=== PATIENT | male | born 1950 | race Caucasian/White ===

== ENCOUNTER 2018-09-22 08:14 | Inpatient (IN) | payer BC, MEDICARE ==
--- NOTE | 2018-09-03 09:28 | ANES ---
Anesthesia Pre Procedure Eval HOME MEDICATIONS Aspirin [Aspirin EC] 81 mg PO DAILY 11/29/17 [Last Taken Unknown] Glucosamine HCl 1,000 mg PO DAILY 11/29/17 [Last Taken Unknown] Ubidecarenone [Co Q-10] 10 mg PO DAILY 11/29/17 [Last Taken Unknown] metformin 1,000 mg tablet 1,000 mg PO BID #180 tab 04/29/18 [Last Taken Unknown] glimepiride 4 mg tablet 8 mg PO DAILY #180 tab 07/25/18 [Last Taken Unknown] atorvastatin 80 mg tablet 80 mg PO DAILY #90 tab 08/06/18 [Last Taken Unknown] sitagliptin 100 mg tablet 100 mg PO DAILY #90 tab 08/29/18 [Last Taken Unknown] Allergies/Adverse Reactions: Allergies Allergy/AdvReac Type Severity Reaction Status Date / Time No Known Allergies Allergy Verified 09/03/18 08:23 - Planned Procedure Planned Procedure: Arthroplasty Total Knee Left Medication List Reviewed:: Yes Allergies Verified: Yes Medical History (Last Reviewed 09/03/18 @ 09:21 by Art Sidhu CRNA) Sensorineural hearing loss (SNHL) of both ears (Chronic) Obesity (Chronic) Hypertension (Chronic) Hyperlipidemia (Chronic) Diabetes mellitus (Chronic) Bilateral tinnitus (Chronic) Surgical History (Last Reviewed 09/03/18 @ 09:21 by Art Sidhu CRNA) History of arthroscopic knee surgery Onset Date: ~11/01/04 right -Dr. Liz History of colonoscopy Onset Date: ~12/24/17 06/04/2008 Dr. Miller-WNL 12/24/2017 Dr. Randhawa-DARNELL Family History (Last Reviewed 09/03/18 @ 09:21 by Art Sidhu CRNA) Brother Gout Alive and well Cancer Father , age 86 Gout CHF (congestive heart failure) Mother Arthritis A-fib Mother No problems noted. Brother Leukemia Son Cancer, Onset Age: 46 Colon CA - Family Anesthesia History Family History:: no untoward family reactions to anesthesia, no familial bleeding tendencies, no family history of clotting disorders, no family history of premature - Airway/Neck/Teeth Within Normal Limits:: Yes - lower teeth implants Teeth Condition: Intact Neck Exam: non-tender Mallampatti Score: 4 Thyromental (T-M) distance: > 6 cm Mandibulo Hyoid distance: > 3 cm - Respiratory Respiratory: chest non-tender, lungs clear, normal breath sounds Smoking Status: Former smoker Discussed smoking cessation including day of surgery: No Sleep Apnea currently treated: No Sleep Apnea by current assessment: Yes - Some symptoms but denies HILDA Discussed Risks/Treatment of HILDA: Yes - Cardiovascular Patient History - Cardiac/Respiratory: Hypertension, Hyperlipidemia Tolerates Activity: Fair Heart Sounds: S1 & S2, Regular - Anesthesia Assessment and Plan ASA Class: PS, III - Morbid obesity, HTN, diabetes
[~2018-09-22 08:14] MED LIST: MORPHINE SULFATE 15 MG TABLET.SA PO PRN; ROPIVACAINE HCL/PF 100 MG, EPINEPHrine 0.2 MG, KETOROLAC TROMETHAMINE 30 MG in NORMAL S... IJ PRN; TRANEXAMIC ACID 1,000 MG in NORMAL SALINE 100 ML IV PRN; ceFAZolin SODIUM 1 GM VIAL IV PRN
[2018-09-22] MEDS: RINGER'S SOLUTION,LACTATED 1,000 ML IV PRN ×3 (09:17→11:45)
[2018-09-22] MEDS ORDERED: MORPHINE SULFATE 2 MG/ML DISP.SYRIN IV PRN (11:53)
[2018-09-22] MEDS ORDERED: ZOLPIDEM TARTRATE 5 MG TABLET PO PRN (11:53)
[2018-09-22] MEDS ORDERED: RINGER'S SOLUTION,LACTATED 1,000 ML IV PRN (11:53)
[2018-09-22] MEDS ORDERED: ONDANSETRON HCL/PF 2 MG/ML VIAL IV PRN (11:53)
[2018-09-22] MEDS ORDERED: ACETAMINOPHEN 500 MG TABLET PO PRN (11:53)
[2018-09-22] MEDS ORDERED: MAG HYDROX/ALUMINUM HYD/SIMETH 30 ML UDC PO PRN (11:53)
[2018-09-22] MEDS ORDERED: MAGNESIUM HYDROXIDE 30 ML UDC PO PRN (11:53)
[2018-09-22] MEDS ORDERED: diphenhydrAMINE HCL 50 MG/ML VIAL IV PRN (11:53)
--- NOTE | 2018-09-22 11:58 | OR ---
Operative Report - Dictated Report Narrative: Date: 09/22/2018 Preoperative diagnosis: Left Knee degenerative joint disease. Postoperative diagnosis: Left Knee degenerative joint disease. Procedure: Left Total knee arthroplasty. Surgeon: Brayan Petty M.D. Farm Owner Operator: Martin Luque PA-C (provided and essential set of skilled, educated hands that assisted with transfer, positioning, prepping, draping, manipulation, retraction, placement of jigs, injection, insertion of implants, irrigation, closure wounds, and dressings all of which could not be performed by the available surgical crew) Anesthesia: Spinal with regional block and local periarticular joint injection. Complications: None Specimens: Bone for disposal. Estimated blood loss: Minimal. Tourniquet time: 110 Minutes at 325 millimeters of mercury. Retained implants: Depuy Attune size 10 left lugged cemented posterior stabilized femoral compone nt. Size 10 fixed-bearing cemented tibial platform. 10 by 5 millimeter posterior stabilized cross-linked tibial insert. 41 millimeter medialized patella button. Indications: Mr. Tidwell is a 67-year-old gentleman who has had left knee pain and arthrosis for an extended amount of time. This patient was followed in my clinic for period of time with significant complaints of left knee pain consis tent with arthritic changes. He had failed conservative measures including, but not limited to, activity modification, passage of time, medications, and other conservative measures. Patient wished to proceed with surgical treatment. The risks, benefits, and alternatives were discussed in clinic. The risks of , blood clots, bleeding, infection, nerve/tendon blood vessel/ injury, malposition of components, intraoperative fracture, postoperative limited range of motion, persistent pain, failure of components, and need for additional procedures. Patient wished to proceed consent was obtained after answering all questions. Procedure: After marking the correct extremity on the floor, the patient was taken to the operating room. A timeout was performed. IV antibiotics consisting of Ancef were administered prior to the procedure. A regional followed by spinal anesthetic was induced by anesthesia, per my request, on the operative table with all bony prominences well-padded. Chavarria catheter was placed, and a bump was placed under the operative side buttock. SCDs and ERWIN hose were utilized on the nonoperative leg. A well-padded tourniquet was applied to the operative thigh. The operative leg was then pre-scrubbed with alcohol, prepped, and draped in a standard sterile fashion. After exsanguinating the extremity with an Esmarch bandage, the tourniquet was inflated. After marking out the anterior knee for standard incision centered over the patella, the skin was incised and dissected down to the joint retinaculum. The joint retinaculum was marked out as well as the horizontal axis of the patella, and a standard medial parapatellar arthrotomy was then made. The most proximal aspect of the quadriceps tendon and the patella tendon insertion were protected from release. A partial synovectomy was performed as well as a resection of the infrapatellar fat pad. The distal femoral fat pad proximal to the trochlea was also resected using cautery. The soft tissues were elevated off the medial aspect of the proximal tibia using a Meza elevator ensuring that we did not transect the medial collateral ligament. Upon initial evaluation range of motion was approximately 10 degrees to 120 degrees of flexion. There were signs of advanced arthrosis in the medial, lateral, and patellofemoral joint spaces. There were large marginal osteophytes which were removed with a rongeur. The knee was hyperflexed and the patella was tucked laterally. Protecting the surrounding soft tissues with Homans, an entry drill was placed down the femoral canal using Whitesides line for guidance into the entry point. The intramedullary femoral alignment brandon was utilized in order to cut the distal femur in 5 degrees of valgus resecting 12 millimeters of bone. Next the distal femur was sized to a size 10. A posterior referencing guide was utilized to place the distal femoral cutting block in 3 degrees of external rotation. This was pinned into place. The rotation was confirmed both visually and based on anatomic landmarks. The 4 in 1 cutting jig of the appropriate size was utilized in order to make all bony cuts. The angle wing was used to ensure no notching. Retractors were utilized in order to protect surrounding soft tissues. This cut did not result in any excessive notching. We then cut the box centered over the distal femur. This allowed for resection of the anterior and posterior cruciate ligaments. I then turned my attention to the preparation of the tibia. Using an extra medullary tibial alignment brandon, 6 millimeters of bone was resected off the medial articular surface. This was made perpendicular to the mechanical axis of the joint with the alignment brandon centered over the ankle mortise. The alignment brandon was checked and was noted to be parallel to the mechanical axis, centered over the medial one third of the tibial tubercle, paralleling the anterior surface of the tibia. We then turned our attention to the remaining meniscus and soft tissues. These were removed while protecting the surrounding ligaments and soft tissues. The marginal osteophytes off the anterior, posterior, medial, lateral aspects of the femur and tibia were removed. The tibia was sized out to a size 10. Next the tibia was drilled and punched in an externally rotated position. Next the trial femur and a series of tibial inserts were utilized in order to allow for full extension and maximal flexion. It was found that a 5 millimeter insert gave the best range of motion and stability at multiple flexion points as well as at full extension after pe rforming a posterior capsular release there was less than 2 mm of gapping both medially and laterally. There is minimal anterior translation with the knee at 90 degrees of flexion and no signs of being able to dislocate the knee. The patella was then prepared. The initial thickness was 29 millimeters. This was reamed down to 18 millimeters parallel to the anterior surface of the patella. It was sized out to a size 41 medialized patella button. This was then drilled and trialed. Without any medial restraint the patella tracked appropriately and did not sublux or dislocate. At this point, it was felt these were the appropriate sized implants, and all trials were removed. The standard periarticular joint injection consisting of ropivacaine, Toradol, and epinephrine were injected into the periarticular joint tissues. The bony surfaces were thoroughly irrigated with a pulsatile-suction saline irrigation device. A bone plug from the prior resected anterior chamfer cut was placed into the drill hole at the distal femur. The bony surfaces were then dried in preparation for placement of the implants. The cement was vacuum mixed per the utility sales representative's instructions. The cement was placed on the dry bony surfaces and posterior aspect of the implants. The implants were impacted into place, removing all extruded cement. At this point anesthesia administered tranexamic acid per protocol intravenously. The knee was placed in extension with axial loading with the trial insert while the cement cured. Once the cement cured, all remaining extruded cement was removed. The knee was placed through a range of motion with the trial insert to ensure appropriate range of motion and stability. Final range of motion was approximately 0 to 120 degrees. The knee was again thoroughly irrigated with pulsatile saline lavage. The final polyethylene insert was then impacted into place ensuring no retained soft tissues. The remaining periarticular joint injection was injected. A medium Hemovac drain was placed exiting superior laterally. The knee was then placed over a triangle and the arthrotomy was closed with interrupted #1 Vicryl after thoroughly irrigating the joint. The deep and subcutaneous tissues were closed with interrupted 0 and 3-0 Vicryl respectively. Skin was closed with a running subcutaneous 3-0 Monocryl and Prineo Dermabond dressing. 4 x 4's, Sof-Rol, and a full leg Sreedhar wrap were applied. All sponge, needle, blade, and instrument counts were correct prior to closing the wounds. Postoperative condition: The patient was awoken and transferred to the postanesthesia care unit in stable condition. Plan is to be admitted to the inpatient medical/surgical floor postoperatively for 24 hours of IV antibiotics, physical therapy, occupational therapy, and medical comanagement. Patient will be weightbearing as tolerated with range of motion as tolerated. DVT prophylaxis will be with SCDs, ERWIN hose, and pharmacological anticoagulation. Anticipated hospital stay is approximately 1-3 days.
--- NOTE | 2018-09-22 12:54 | ANES ---
Post Anesthesia Assessment - Vital Signs Vitals: Last Vital Signs Temp 36.7 C 09/22/18 12:45 Pulse 82 09/22/18 12:45 Resp 17 09/22/18 12:45 BP 111/74 09/22/18 12:45 Pulse Ox 97 09/22/18 12:45 Airway Patency: Normal - Mental Status Level Of Consciousness: Awake - Pain Level Pain Score: 0 - N/V Assessment Nausea/Vomiting Presence: None Dehydration:: No
--- NOTE | 2018-09-22 12:54 | ANES ---
Post Anesthesia Discharge - Transfer of Care Transfer of Care handoff given to nurse: Yes - Discharge from PACU Discharge from PACU when meets criteria: Yes
--- NOTE | 2018-09-22 12:58 | ANES ---
Anesthesia Procedure Note Procedure Note: ANESTHESIA PROCEDURE NOTE Date of procedure:[]. 09/22/2018 Time of procedure:[]. Performed by: Adilson Salguero CRNA Edger Hand: [] Dariela Ballesteros RN . Preprocedure diagnosis: []. Left knee DJD. Desire for postoperative analgesia. Post procedure diagnosis: Same. Procedure:[] Ultrasound-guided left adductor canal block Indications: []. Postop analgesia Findings: [] Patient brought to operating room #2 and placed in a supine position. Patient sedated. Patient's left thigh was prepped with ChloraPrep. Ultrasound was utilized to identify abductor canal. A 20-gauge 4 inch regional block needle was advanced under ultrasound guidance until tip of needle was positioned in abductor canal. 20 mL 0.25% Marcaine with epinephrine 1-200,000 was injected with adequate spread of local anesthesia noted. Regional block needle was removed intact. EBL: Minimal. Fluids: N/A. Specimen: N/A. Post procedure condition: The patient tolerated the procedure well. No complications were noted. Thank you for this consultation Adilson Salguero CRNA
[2018-09-22] MEDS: KETOROLAC TROMETHAMINE 15 MG/ML VIAL IV SCH ×2 (13:14→18:38)
[2018-09-22] MEDS: ceFAZolin SODIUM 1 GM in DEXTROSE 5 % IN WATER 100 ML IV SCH ×4 (13:53→20:26)
[2018-09-22] MEDS: oxyCODONE HCL/ACETAMINOPHEN 1 TAB TABLET PO PRN ×2 (15:06→22:59)
[2018-09-22] MEDS: MORPHINE SULFATE 15 MG TABLET.SA PO SCH (20:27)
[2018-09-22] MEDS: GLIMEPIRIDE 2 MG TABLET PO SCH (20:27)
[2018-09-22] MEDS ORDERED: SENNOSIDES/DOCUSATE SODIUM 1 TAB TABLET PO SCH (21:00)
[2018-09-22] MEDS ORDERED: ROSUVASTATIN CALCIUM 20 MG TABLET PO SCH (21:00)
[2018-09-23] MEDS: KETOROLAC TROMETHAMINE 15 MG/ML VIAL IV SCH ×3 (00:24→11:39)
[2018-09-23] MEDS: ceFAZolin SODIUM 1 GM in DEXTROSE 5 % IN WATER 100 ML IV SCH ×2 (02:22)
[2018-09-23] MEDS: oxyCODONE HCL/ACETAMINOPHEN 1 TAB TABLET PO PRN ×2 (04:50→09:58)
[2018-09-23 06:05] LABS: Hematocrit 39.4 % (42.0-52.0); Hemoglobin 13.3 gm/dL (13.5-18.0); Mean Cell Volume 93.6 fl (78-100); Mean Corpuscular Hemoglobin 31.6 pg (27-31); Mean Corpuscular Hgb Conc 33.8 g/dl (32-36); Platelet Count 204 K/mm3 (150-450); Red Blood Count 4.21 M/mm3 (4.7-6.0); Red Cell Distribution Width 12.8 % (11.5-14.0); White Blood Count 9.8 K/mm3 (4.0-10.5)
[2018-09-23 06:07] LABS: Anion Gap 13.9 mmol/L (6.8-13.8); BUN/Creatinine Ratio 15.5 (9.0-21.6); Calcium * 8.3 mg/dL (7.9-10.9); Carbon Dioxide 25.4 mmol/L (24-32.6); Estimated Creat Clear 73.7; Potassium 4.3 mmol/L (3.4-4.6)
[2018-09-23] MEDS: GLIMEPIRIDE 2 MG TABLET PO SCH (08:15)
[2018-09-23] MEDS: MORPHINE SULFATE 15 MG TABLET.SA PO SCH (08:15)
[2018-09-23] MEDS ORDERED: sitaGLIPtin PHOSPHATE 50 MG TABLET PO SCH (09:00)
[2018-09-23] MEDS ORDERED: (Ubidecarenone [Co Q-10] 100 MG) PO SCH (09:00)
[2018-09-23] MEDS ORDERED: ENOXAPARIN SODIUM 40 MG/0.4 ML SYRG SC SCH (10:54)
--- NOTE | 2018-09-23 12:01 | DS ---
(1) Left knee DJD Problem: Chronic (2) Status post total left knee replacement Problem: Acute (3) Acute blood loss anemia Problem: Acute (4) Hypertension Problem: Chronic Qualifiers: (5) Obesity Problem: Chronic (6) Hyperlipidemia Problem: Chronic Qualifiers: (7) Diabetes mellitus Problem: Chronic Qualifiers: Description of Stay: Mr. Tidwell was admitted to the floor after undergoing left total knee arthroplasty. Tolerated this well. Was admitted to the floor postoperatively for 24 hours of IV antibiotics, pain control, medical comanagement, and occupational and physical therapy. OT and PT were consulted to assist with act ivities of daily living and ambulation. Was made weightbearing as tolerated with range of motion as tolerated. Pain was initially controlled with IV regimen. This was transitioned to oral once tolerating a by mouth intake. Was resumed on home diet and medications. Had a Chavarria catheter inserted and the operating room which was discontinued on postoperative day 1. A drain was placed intraoperatively into the knee which was discontinued on postoperative day 1. Lovenox SCD and ERWIN hose were utilized for DVT prophylaxis. Vital signs remained stable to the hospital course. Serial labs were obtained which showed a final hemoglobin of 13.3 grams. BMP was reviewed and was stable. Physical examination throughout the hospital course showed an extremity that had sensation that was intact to light touch, palpable pulses, a benign wound, motor intact to the toes, ankle, and knee. Knee range of motion was approximately 5 degrees to 70 degrees. Once an oral pain regimen was tolerated and physical therapy goals were met, it was felt that they were stable for discharge to home. Instructions: Continue with weightbearing as tolerated and range of motion as tolerated. It is OK to shower on the wound if it is not draining. If you note any drainage or for comfort you can cover with dry gauze and tape. Change every 2-3 days as needed. Continue with physical therapy. Resume home diet. Report any fever over 101.5 Fahrenheit, uncontrolled pain, increased drainage, foul odor of drainage, new or increased calf pain or shortness of breath, or any other significant complaints. A 325mg dialy aspirin will be started after finishing anticoagulation if not allergic. Continue with ERWIN hose on the operative extremity until instructed otherwise. No driving until instructed otherwise. Follow up in approximately 10-14 days. Procedures Performed: see notes below List Procedures: Left total knee arthroplasty Results and Findings: Lab Pending Results 09/23/18 05:00: WBC 9.8, RBC 4.21 L, Hgb 13.3 L, Hct 39.4 L, MCV 93.6, MCH 31.6 H, MCHC 33.8, RDW 12.8, Plt Count 204, MPV 10.0 09/23/18 05:00: Sodium 137, Plasma Sodium 139, Potassium 4.3, Chloride 102, Carbon Dioxide 25.4, Anion Gap 13.9 H, BUN 16, Creatinine 1.03, Est GFR (Non-Af Amer) 76, BUN/Creatinine Ratio 15.5, Random Glucose 195 H, Calcium 8.3 Discharge Location: Home Disposition: Home self-care Condition: Good Discharge Activity: Activity as tolerated, Other - with wheeled walker Discharge Diet: Consistent carbs, Low salt, Low fat/chol Referrals: Basim Jarquin DO [Primary Care Provider] - Additional Patient Instructions (free text): Physical Therapy at [facility] rehab department 09/24 at 9:30am. Follow up Orthopedic Dr Petty's appt. on SaturdayOctober 14 at 10:45am. Prescriptions (Any new or edited meds): Enoxaparin Sodium [Lovenox] 40 mg SC Q24H #7 disp.syrin Morphine Sulfate [Ms Contin] 15 mg PO Q12H #20 tablet.sa oxyCODONE HCL/ACETAMINOPHEN [Percocet 5 MG/325 MG] 2 tab PO Q4H PRN #60 tab PRN Reason: Moderate Pain (Pain Scale 4-6) Sennosides/Docusate Sodium [Senokot-S] 2 tab PO HS #30 tab Complete Home Medications List: Complete Home Medication List: Aspirin [Aspirin EC] 81 mg PO DAILY 11/29/17 Glucosamine HCl 1,500 mg PO BID 11/29/17 Ubidecarenone [Co Q-10] 100 mg PO DAILY 11/29/17 metformin 1,000 mg tablet 1,000 mg PO BID #180 tab 04/29/18 atorvastatin 80 mg tablet 80 mg PO DAILY #90 tab 08/06/18 sitagliptin 100 mg tablet 100 mg PO DAILY #90 tab 08/29/18 Glimepiride 3 mg PO BID 09/22/18 Enoxaparin Sodium [Lovenox] 40 mg SC Q24H #7 disp.syrin 09/23/18 Morphine Sulfate [Ms Contin] 15 mg PO Q12H #20 tablet.sa 09/23/18 Sennosides/Docusate Sodium [Senokot-S] 2 tab PO HS #30 tab 09/23/18 oxyCODONE HCL/ACETAMINOPHEN [Percocet 5 MG/325 MG] 2 tab PO Q4H PRN #60 tab 09/23/18
[2018-09-23 13:27] VITALS: BP 131/76
== END 2018-09-23 13:30 | disposition home or self-care (01) | DRG 470 ==
LOC: MS 08:14 → EDSTATUS 11:30
PROVIDERS: ADMIT Orthopaedic Surgery; ATTEND Orthopaedic Surgery
CPT/HCPCS: 36415; 73560; 80048; 85027; 97116; 97162; 97166; 97530; 97535